=== PATIENT | male | born 1975 | race Caucasian/White ===

== ENCOUNTER 2017-02-27 20:16 | Emergency (ER) | payer OTHER ==
--- NOTE | 2017-02-27 21:07 | ED CLINICAL REPORT ---
Clinical Report - Physicians/Mid Levels [facility] [address] [place] [address] 02/27/2017 20:17 Patient: BARTOLO AVILA Time Seen: 20:33; initial patient contact, initial documentation, patient care assumed. Arrived- By private vehicle. Historian- patient. HISTORY OF PRESENT ILLNESS Chief Complaint: Injury to the left 5th (little) finger. The injury happened just prior to arrival. Fell while running and landed on the ground; tripped. Occurred at home. Patient is experiencing moderate pain. Patient denies injury to the head or neck. No other injury. REVIEW OF SYSTEMS No swelling, tingling, numbness, weakness or foreign body. No skin laceration. All systems otherwise negative, except as recorded above. PAST HISTORY See nurses notes. PROBLEMS: Asthma. --20:40 Eli Reyes R.N. ADDITIONAL SURGERIES: Knee Surgery. --20:40 Eli Reyes R.N. The patient's dominant hand is the right. SOCIAL HISTORY Never smoker. No alcohol use or drug use. No recent travel. Is a local resident. FAMILY HISTORY No significant family medical history. ADDITIONAL NOTES The nursing notes have been reviewed with agreement regarding the chief complaint, HPI, ROS, PMH and patient medications and allergies. PHYSICAL EXAM Vital Signs: 02/27/2017 20:37 BP: 113/53. HR: 70. RR: 18. O2 saturation: 96%. Temp: 98 F. Pain level now: 5/10. Have been reviewed as normal and appear to be correct. Appearance: Alert. Oriented X3. No acute distress. Head: Head atraumatic. Eyes: Pupils equal, round and reactive to light. Eyes normal inspection. Respiratory: No respiratory distress. Abdomen: Moderately obese. Skin: Skin warm and dry. Skin intact. Extremities: Hand injury present. Left little finger: mild tenderness of the middle phalanx; limited movement (diminished flexion). Neurovascular intact distally. No erythema, swelling, laceration, abrasion or ecchymosis. No puncture wound, foreign body or deformity. No subungual hematoma or amputation present. No wrist injury. Hand and wrist exam otherwise negative. Extremities otherwise negative. Neuro, Vascular and Tendons: Vascular status intact. Sensation intact. Motor intact. Tendon function intact. Neuro: Oriented X 3. No motor deficit. No sensory deficit. Note: isolated injury to finger. LABS, X-RAYS, AND EKG X-Rays: Left digit(s). Lt UE Digits X-ray: Digit fracture of the left upper extremity. Fracture of the middle phalanx, little finger. The X-rays were independently viewed by me. PROGRESS AND PROCEDURES Patient counseled in person regarding the patient's stable condition, test results and diagnosis. Differential Diagnosis: Other possible considerations: finger fx, sprain, dislocation. Above considerations are based on history, physical exam and X-Ray data. Differential diagnosis was discussed with patient. Disposition: Discharged home in good and improved condition (21:07). Condition: good and stable. CLINICAL IMPRESSION Closed nondisplaced middle phalanx fracture of the left little finger. No angulated fracture of the phalanx. Fall on same level by tripping. INSTRUCTIONS Apply ice for 20 minutes four times a day for two days until better. Don't apply ice directly to skin. Elevate affected areas above chest level for two days until better. Wear aluminum splint until released. Warnings: GENERAL WARNINGS: Return or contact your physician immediately if your condition worsens or changes unexpectedly, if not improving as expected, or if other problems arise. Specifically return if problem worsens. Prescription Medications: [place] 5 mg / 325 mg tablets: take 1 to 2 orally every 6 hours as needed for pain. Dispense fifteen (15). No refills. Substitution is permissible. Motrin 800 mg tablets: take 1 tablet orally every 8 hours as needed for pain. Dispense thirty (30). No refills. Substitution is permissible. Understanding of the discharge instructions verbalized by patient. Follow-up with: Moose Walden MD, Orthopedic Surgeon, , [address], , [place], [address]; Dalton Ross MD, Orthopedic Surgeon, , [address] , [facility] [address] Follow up in about three days even if well. Call for an appointment. Summary of care provided to patient. (Electronically signed by Rosa Elena Mccabe A.R.N.P. 02/27/2017 22:13)
--- NOTE | 2017-02-27 21:07 | ED NURSING NOTES ---
Clinical Report - Nurses [address] [place] [address] 02/27/2017 20:17 Patient: BARTOLO AVILA TRIAGE Triage time 20:37. Acuity: LEVEL 4. Chief Complaint: INJURY TO LEFT HAND. INJURY TO THE LEFT LITTLE FINGER. 20:42 02/27/17. Alert. No acute distress. SEPSIS SCREEN: Sepsis Screen. Negative (no infection suspected/documented). PHIL COMA SCORE: Phil Coma Scale: 15- eyes open spontaneously (4); best verbal response- oriented x 4 (5); best motor response- obeys commands (6). --20:42 Eli Reyes R.N. 20:37 02/27/17. BP: 113/53. HR: 70. RR: 18. O2 saturation: 96% on room air. Temp: 98 F. Pain level now: 02/21. --20:42 Eli Reyes R.N. Weight: 174.1 kg stated. Height/Length: 75 inches Per Patient. BMI: 48. --20:42 Eli Reyes R.N. Medications Qvar Inhalation. --20:39 Eli Reyes R.N. Albuterol Sulfate Inhalation. --20:40 Eli Reyes R.N. Allergies None. --20:40 Eli Reyes R.N. History Arrived by private vehicle. Historian: patient. Accompanied by family and mother. Primary physician (Dr Green ([place])). This occurred just prior to arrival. Mechanism of injury: fell. ( Patient states "I was chasing my goose and I fell on my finger"). Treatment COPYING MACHINE MECHANIC: Ice. PAST MEDICAL HX: Tetanus status: up-to-date. Immunizations: up-to-date. SOCIAL HX: Never smoker. No alcohol use or drug use. FALL RISK ASSESSMENT: Fall risk assessment completed. No fall risk identified. NUTRITIONAL RISK ASSESSMENT: The nutritional risk assessment revealed no deficiencies. FUNCTIONAL ASSESSMENT: Functional assessment: no impairments noted. LEARNING NEEDS ASSESSMENT: The learning needs assessment revealed no barriers. SKIN INTEGRITY ASSESSMENT: Skin integrity risk assessment completed. No skin integrity risk identified. --20:42 Eli Reyes R.N. PROBLEMS: Asthma. --20:40 Eli Reyes R.N. ADDITIONAL SURGERIES: Knee Surgery. --20:40 Eli Reyes R.N. Interventions ID band on patient. To treatment room. --20:42 Eli Reyes R.N. PHYSICAL ASSESSMENT 20:43 02/27/17. Ambulatory to room. GENERAL / NEURO / PSYCH: Oriented X 4. Alert. Appears in no acute distress. EXTREMITIES: Left little finger: tenderness and swelling. Limited movement secondary to pain (diminished flexion and extension). No erythema. SKIN: Skin intact. Skin is warm and dry. --20:43 Eli Reyes R.N. NURSING PROGRESS NOTES 20:43 02/27/17. Two patient identifiers checked. Call light placed in reach. Side rails up x 1. Bed placed in lowest position. Brakes of bed on. Patient ready for evaluation- chart flagged and notification provided. Patient informed about reason for wait and about plan of care. --20:43 Eli Reyes R.N. ( xray at bedside). --20:46 Eli Reyes R.N. 20:58 02/27/2017 Ibuprofen PO 600 mg given. Allergies verified and confirmed 5 rights. --20:58 Alexis Márquez R.N. Aluminum-foam finger splint applied to left little finger by [employer] ( 2100). --21:08 Quita Potts. DISPOSITION / DISCHARGE 21:16 02/27/17. No learning barriers present. Discharge instructions provided and reviewed with the patient and parent. Reviewed warnings. Reviewed medication(s). Treatments reviewed. Reviewed referrals. Activity restrictions reviewed. Patient and parent verbalized understanding. Written instructions provided in Yakut. The patient was discharged by the nurse practitioner. He was discharged home and accompanied by parent. He left the Emergency Department ambulatory and via private vehicle. Parent driving. --21:16 Eli Reyes R.N. 20:37 02/27/17. BP: 113/53. HR: 70. RR: 18. O2 saturation: 96% on room air. Temp: 98 F. Pain level now: 5/10. --21:16 Eli Reyes R.N. Locked/Released at 02/28/2017 0:26 by Eli Reyes R.N.
--- NOTE | 2017-02-27 21:07 | ED ORDER SUMMARY ---
..... Patient: BARTOLO AVILA OrderSheet [facility] VisitID: [id number] [address] [place] [address] 41y, M Registration Date/Time: 02/27/2017 ORDER SHEET Weight: 174.1 kg (stated) Allergies: None GENERAL ORDERS: Hand 3 or 4V Left Urgent (20:41 02/27/2017 DDavis R.N. verbal order read back to HBivens A.R.N.P.) (20:46 RMarsden R.N.) Splint (Finger) (Left) (Small) (Aluminum Foam) (20:51 02/27/2017 HBivens A.R.N.P.) (21:04 RMarsden R.N.) MEDICATION ORDERS: Hydrocodone-APAP PO 5/325 mg (NOW, HIGH ALERT MEDICATION) (20:51 02/27/2017 HBivens A.R.N.P.) (Ack 20:55 JQuivey R.N.) (Cancelled: Patient [id number]:56 JQuivey R.N.) Ibuprofen PO 600 mg (NOW) (20:57 02/27/2017 JQuivey R.N. per protocol) (20:58 JQuivey R.N.) IV FLUIDS: ORDER SHEET NOTES: [Electronically signed by Rosa Elena MccabeRRadhaN.PRadha (22:13 02/27/2017)] [Electronically signed by Eli Reyes R.N. (00:26 02/28/2017)] [Electronically locked/signed by Eli Reyes R.N. (00:26 02/28/2017)]
--- NOTE | 2017-02-27 21:07 | ED CLINICAL REPORT ---
Clinical Report - Physicians/Mid Levels [facility] [address] [place] [address] 02/27/2017 20:17 Patient: BARTOLO AVILA Time Seen: 20:33; initial patient contact, initial documentation, patient care assumed. Arrived- By private vehicle. Historian- patient. HISTORY OF PRESENT ILLNESS Chief Complaint: Injury to the left 5th (little) finger. The injury happened just prior to arrival. Fell while running and landed on the ground; tripped. Occurred at home. Patient is experiencing moderate pain. Patient denies injury to the head or neck. No other injury. REVIEW OF SYSTEMS No swelling, tingling, numbness, weakness or foreign body. No skin laceration. All systems otherwise negative, except as recorded above. PAST HISTORY See nurses notes. PROBLEMS: Asthma. --20:40 Eli Reyes R.N. ADDITIONAL SURGERIES: Knee Surgery. --20:40 Eli Reyes R.N. The patient's dominant hand is the right. SOCIAL HISTORY Never smoker. No alcohol use or drug use. No recent travel. Is a local resident. FAMILY HISTORY No significant family medical history. ADDITIONAL NOTES The nursing notes have been reviewed with agreement regarding the chief complaint, HPI, ROS, PMH and patient medications and allergies. PHYSICAL EXAM Vital Signs: 02/27/2017 20:37 BP: 113/53. HR: 70. RR: 18. O2 saturation: 96%. Temp: 98 F. Pain level now: 5/10. Have been reviewed as normal and appear to be correct. Appearance: Alert. Oriented X3. No acute distress. Head: Head atraumatic. Eyes: Pupils equal, round and reactive to light. Eyes normal inspection. Respiratory: No respiratory distress. Abdomen: Moderately obese. Skin: Skin warm and dry. Skin intact. Extremities: Hand injury present. Left little finger: mild tenderness of the middle phalanx; limited movement (diminished flexion). Neurovascular intact distally. No erythema, swelling, laceration, abrasion or ecchymosis. No puncture wound, foreign body or deformity. No subungual hematoma or amputation present. No wrist injury. Hand and wrist exam otherwise negative. Extremities otherwise negative. Neuro, Vascular and Tendons: Vascular status intact. Sensation intact. Motor intact. Tendon function intact. Neuro: Oriented X 3. No motor deficit. No sensory deficit. Note: isolated injury to finger. LABS, X-RAYS, AND EKG X-Rays: Left digit(s). Lt UE Digits X-ray: Digit fracture of the left upper extremity. Fracture of the middle phalanx, little finger. The X-rays were independently viewed by me. PROGRESS AND PROCEDURES Patient counseled in person regarding the patient's stable condition, test results and diagnosis. Differential Diagnosis: Other possible considerations: finger fx, sprain, dislocation. Above considerations are based on history, physical exam and X-Ray data. Differential diagnosis was discussed with patient. Disposition: Discharged home in good and improved condition (21:07). Condition: good and stable. CLINICAL IMPRESSION Closed nondisplaced middle phalanx fracture of the left little finger. No angulated fracture of the phalanx. Fall on same level by tripping. INSTRUCTIONS Apply ice for 20 minutes four times a day for two days until better. Don't apply ice directly to skin. Elevate affected areas above chest level for two days until better. Wear aluminum splint until released. Warnings: GENERAL WARNINGS: Return or contact your physician immediately if your condition worsens or changes unexpectedly, if not improving as expected, or if other problems arise. Specifically return if problem worsens. Prescription Medications: [place] 5 mg / 325 mg tablets: take 1 to 2 orally every 6 hours as needed for pain. Dispense fifteen (15). No refills. Substitution is permissible. Motrin 800 mg tablets: take 1 tablet orally every 8 hours as needed for pain. Dispense thirty (30). No refills. Substitution is permissible. Understanding of the discharge instructions verbalized by patient. Follow-up with: Moose Walden MD, Orthopedic Surgeon, , [address], , [place], [address]; Dalton Ross MD, Orthopedic Surgeon, , [address] , [facility] [id number] Follow up in about three days even if well. Call for an appointment. Summary of care provided to patient. (Electronically signed by Rosa Elena Mccabe A.R.N.P. 02/27/2017 22:13)
--- NOTE | 2017-02-27 21:07 | ED ORDER SUMMARY ---
..... Patient: BARTOLO AVILA OrderSheet [facility] VisitID: [id number] [address] [place] [address] 41y, M Registration Date/Time: 02/27/2017 ORDER SHEET Weight: 174.1 kg (stated) Allergies: None GENERAL ORDERS: Hand 3 or 4V Left Urgent (20:41 02/27/2017 DDavis R.N. verbal order read back to HBivens A.R.N.P.) (20:46 RMarsden R.N.) Splint (Finger) (Left) (Small) (Aluminum Foam) (20:51 02/27/2017 HBivens A.R.N.P.) (21:04 RMarsden R.N.) MEDICATION ORDERS: Hydrocodone-APAP PO 5/325 mg (NOW, HIGH ALERT MEDICATION) (20:51 02/27/2017 HBivens A.R.N.P.) (Ack 20:55 JQuivey R.N.) (Cancelled: Patient [id number]:56 JQuivey R.N.) Ibuprofen PO 600 mg (NOW) (20:57 02/27/2017 JQuivey R.N. per protocol) (20:58 JQuivey R.N.) IV FLUIDS: ORDER SHEET NOTES: [Electronically signed by Rosa Elena MccabeRRadhaN.PRadha (22:13 02/27/2017)] [Electronically signed by Eli Reyes R.N. (00:26 02/28/2017)] [Electronically locked/signed by Eli Reyes R.N. (00:26 02/28/2017)]
--- NOTE | 2017-02-27 21:07 | ED NURSING NOTES ---
Clinical Report - Nurses [address] [place] [address] 02/27/2017 20:17 Patient: BARTOLO AVILA TRIAGE Triage time 20:37. Acuity: LEVEL 4. Chief Complaint: INJURY TO LEFT HAND. INJURY TO THE LEFT LITTLE FINGER. 20:42 02/27/17. Alert. No acute distress. SEPSIS SCREEN: Sepsis Screen. Negative (no infection suspected/documented). PHIL COMA SCORE: Phil Coma Scale: 15- eyes open spontaneously (4); best verbal response- oriented x 4 (5); best motor response- obeys commands (6). --20:42 Eli Reyes R.N. 20:37 02/27/17. BP: 113/53. HR: 70. RR: 18. O2 saturation: 96% on room air. Temp: 98 F. Pain level now: 02/21. --20:42 Eli Reyes R.N. Weight: 174.1 kg stated. Height/Length: 75 inches Per Patient. BMI: 48. --20:42 Eli Reyes R.N. Medications Qvar Inhalation. --20:39 Eli Reyes R.N. Albuterol Sulfate Inhalation. --20:40 Eli Reyes R.N. Allergies None. --20:40 Eli Reyes R.N. History Arrived by private vehicle. Historian: patient. Accompanied by family and mother. Primary physician (Dr Green ([place])). This occurred just prior to arrival. Mechanism of injury: fell. ( Patient states "I was chasing my goose and I fell on my finger"). Treatment ASSISTANT: Ice. PAST MEDICAL HX: Tetanus status: up-to-date. Immunizations: up-to-date. SOCIAL HX: Never smoker. No alcohol use or drug use. FALL RISK ASSESSMENT: Fall risk assessment completed. No fall risk identified. NUTRITIONAL RISK ASSESSMENT: The nutritional risk assessment revealed no deficiencies. FUNCTIONAL ASSESSMENT: Functional assessment: no impairments noted. LEARNING NEEDS ASSESSMENT: The learning needs assessment revealed no barriers. SKIN INTEGRITY ASSESSMENT: Skin integrity risk assessment completed. No skin integrity risk identified. --20:42 Eli Reyes R.N. PROBLEMS: Asthma. --20:40 Eli Reyes R.N. ADDITIONAL SURGERIES: Knee Surgery. --20:40 Eli Reyes R.N. Interventions ID band on patient. To treatment room. --20:42 Eli Reyes R.N. PHYSICAL ASSESSMENT 20:43 02/27/17. Ambulatory to room. GENERAL / NEURO / PSYCH: Oriented X 4. Alert. Appears in no acute distress. EXTREMITIES: Left little finger: tenderness and swelling. Limited movement secondary to pain (diminished flexion and extension). No erythema. SKIN: Skin intact. Skin is warm and dry. --20:43 Eli Reyes R.N. NURSING PROGRESS NOTES 20:43 02/27/17. Two patient identifiers checked. Call light placed in reach. Side rails up x 1. Bed placed in lowest position. Brakes of bed on. Patient ready for evaluation- chart flagged and notification provided. Patient informed about reason for wait and about plan of care. --20:43 Eli Reyes R.N. ( xray at bedside). --20:46 Eli Reyes R.N. 20:58 02/27/2017 Ibuprofen PO 600 mg given. Allergies verified and confirmed 5 rights. --20:58 Alexis Márquez R.N. Aluminum-foam finger splint applied to left little finger by [employer] ( 2100). --21:08 Quita Potts. DISPOSITION / DISCHARGE 21:16 02/27/17. No learning barriers present. Discharge instructions provided and reviewed with the patient and parent. Reviewed warnings. Reviewed medication(s). Treatments reviewed. Reviewed referrals. Activity restrictions reviewed. Patient and parent verbalized understanding. Written instructions provided in Georgian. The patient was discharged by the nurse practitioner. He was discharged home and accompanied by parent. He left the Emergency Department ambulatory and via private vehicle. Parent driving. --21:16 Eli Reyes R.N. 20:37 02/27/17. BP: 113/53. HR: 70. RR: 18. O2 saturation: 96% on room air. Temp: 98 F. Pain level now: 5/10. --21:16 Eli Reyes R.N. Locked/Released at 02/28/2017 0:26 by Eli Reyes R.N.
--- NOTE | 2017-02-27 21:39 | DIAGNOSTIC IMAGING REPORT ---
PROCEDURE: XR HAND 3 OR 4 VIEWS - LEFT INDICATION: TRAUMA/INJURY TECHNIQUE: Four views. COMPARISON: None. FINDINGS: There is a comminuted vertical intra-articular fracture of the middle phalanx, left fifth finger, involving the proximal interphalangeal joint. This is associated with moderate splaying of fracture fragments of the articular surface. The rest of the osseous structures and joint spaces are normal. IMPRESSION: 1. Comminuted intra-articular fracture of the middle phalanx, left fifth finger. 2. Otherwise negative left hand.
--- NOTE | 2017-02-28 00:27 | ED DISCHARGE INSTRUCTIONS ---
Patient: BARTOLO AVILA General Instructions [facility] VisitID: [id number] [address], [place], [place] [id number] 41y, M Registration Date/Time: 02/27/2017 Closed nondisplaced middle phalanx fracture of the left little finger. No angulated fracture of the phalanx. Fall on same level by tripping. INSTRUCTIONS Apply ice for 20 minutes four times a day for two days until better. Don't apply ice directly to skin. Elevate affected areas above chest level for two days until better. Wear aluminum splint until released. Warnings: GENERAL WARNINGS: Return or contact your physician immediately if your condition worsens or changes unexpectedly, if not improving as expected, or if other problems arise. Specifically return if problem worsens. Prescription Medications: [place] 5 mg / 325 mg tablets: take 1 to 2 orally every 6 hours as needed for pain. Dispense fifteen (15). No refills. Substitution is permissible. Motrin 800 mg tablets: take 1 tablet orally every 8 hours as needed for pain. Dispense thirty (30). No refills. Substitution is permissible. Understanding of the discharge instructions verbalized by patient. Follow-up with: Moose Walden MD, Orthopedic Surgeon, , [facility], , [place], [address]; Dalton Ross MD, Orthopedic Surgeon, , [address] [place] [address] Follow up in about three days even if well. Call for an appointment. Summary of care provided to patient. ADDITIONAL INFORMATION Mechanical Fall You have had a fall today. It appears that the cause is mechanical. That means that you slipped, tripped or lost your balance. If your fall had been due to fainting or a seizure, further tests would be required. Home Care: Rest today and resume your normal activities when you are feeling back to normal. If you were injured during the fall, follow the advice from your doctor regarding care of your injury. You may use acetaminophen (Tylenol) or ibuprofen (Motrin, Advil) to control pain, unless another pain medicine was prescribed. [NOTE: If you have chronic liver or kidney disease or ever had a stomach ulcer or GI bleeding, talk with your doctor before using these medicines.] Fall Prevention: Was there anything that caused your fall that can be fixed, removed, or replaced? Make your home safe by keeping walkways clear of objects you may trip over. Use non-slip pads under rugs. Do not walk in poorly lit areas. Do not stand on chairs or wobbly ladders. Use caution when reaching overhead or looking upward. This position can cause a loss of balance. Be sure your shoes fit properly, have non-slip bottoms and are in good condition. Be cautious when going up and down curbs, and walking on uneven sidewalks. If your balance is poor, consider using a cane or walker. Stay as active as you can. Balance, flexibility, strength, and endurance all come from exercise. They all play a role in preventing falls. Follow Up with your doctor or as advised by our staff. Get Prompt Medical Attention if any of the following occur: Repeated mechanical falls, or unexplained falls Dizziness, fainting or seizure Severe headache Chest pain or shortness of breath Palpitations (very rapid or very slow or irregular heartbeat) Blood in vomit, stools (black or red color) Weakness of an arm or leg or one side of the face Difficulty with speech or vision Fracture: Finger [Closed] You have a fracture of your finger (broken finger). This causes local pain, swelling and bruising. This injury takes about four weeks to heal. Finger injuries are often treated with a splint, cast or by taping the injured finger to the next one ("shivam taping"). This protects the injured finger and holds the bone in position while it heals. More serious fractures may require surgery. If the FINGERNAIL has been severely injured, it will probably fall off in 1-2 weeks. A new fingernail will usually start to grow back within a month. Home Care: 1) Keep your hand elevated to reduce pain and swelling. When sitting or lying down elevate your arm above the level of your heart. You can do this by placing your arm on a pillow that rests on your chest or on a pillow at your side. This is most important during the first 48 hours after injury. 2) Apply an ice pack (ice cubes in a plastic bag, wrapped in a towel) over the injured area for 20 minutes every 1-2 hours the first day for pain relief. Continue this 3-4 times a day until the pain and swelling goes away. 3) Keep the cast/splint completely dry at all times. Bathe with your cast/splint out of the water, protected with a large plastic bag, rubber-banded at the top end. If a fiberglass cast/splint gets wet, you can dry it with a hair-dryer. 4) If shivam tape was applied and it becomes wet or dirty, change it. You may replace it with paper, plastic or cloth tape. Cloth tape and paper tapes must be kept dry. Keep the shivam tape in place for at least four weeks. 5) You may use acetaminophen (Tylenol) or ibuprofen (Motrin, Advil) to control pain, unless another pain medicine was prescribed. [ NOTE : If you have chronic liver or kidney disease or ever had a stomach ulcer or GI bleeding, talk with your doctor before using these medicines.] Follow Up with your doctor within one week, or as advised by our staff, to be sure the bone is healing properly, . [NOTE: A radiologist will review any X-rays that were taken. We will notify you of any new findings that may affect your care.] Get Prompt Medical Attention if any of the following occur: -- The plaster cast or splint becomes wet or soft -- The fiberglass cast or splint remains wet for more than 24 hours -- Pain or swelling increases -- Redness, warmth, swelling, drainage from the wound or foul odor from a cast or splint -- Finger becomes more cold, blue, numb or tingly Hydrocodone Bitartrate, Acetaminophen Oral tablet What is this medicine? ACETAMINOPHEN; HYDROCODONE (a set a JANEL varun fen; latrice droe KOE done) is a pain reliever. It is used to treat mild to moderate pain. How should I use this medicine? Take this medicine by mouth. Swallow it with a full glass of water. Follow the directions on the prescription label. If the medicine upsets your stomach, take the medicine with food or milk. Do not take more than you are told to take. Talk to your vice president of manufacturing regarding the use of this medicine in children. This medicine is not approved for use in children. What side effects may I notice from receiving this medicine? Side effects that you should report to your doctor or health care transition manager as soon as possible: allergic reactions like skin rash, itching or hives, swelling of the face, lips, or tongue breathing problems confusion feeling faint or lightheaded, falls stomach pain yellowing of the eyes or skin Side effects that usually do not require medical attention (report to your doctor or health care transition manager if they continue or are bothersome): nausea, vomiting stomach upset What may interact with this medicine? alcohol antihistamines isoniazid medicines for depression, anxiety, or psychotic disturbances medicines for sleep muscle relaxants naltrexone narcotic medicines (opiates) for pain phenobarbital ritonavir tramadol What if I miss a dose? If you miss a dose, take it as soon as you can. If it is almost time for your next dose, take only that dose. Do not take double or extra doses. Where should I keep my medicine? Keep out of the reach of children. This medicine can be abused. Keep your medicine in a safe place to protect it from theft. Do not share this medicine with anyone. Selling or giving away this medicine is dangerous and against the law. Store at room temperature between 15 and 30 degrees C (59 and 86 degrees F). Protect from light. Keep container tightly closed. Throw away any unused medicine after the expiration date. Discard unused medicine and used packaging carefully. Pets and children can be harmed if they find used or lost packages. What should I tell my health care provider before I take this medicine? They need to know if you have any of these conditions: brain tumor Crohn's disease, inflammatory bowel disease, or ulcerative colitis drink more than 3 alcohol-containing drinks per day drug abuse or addiction head injury heart or circulation problems kidney disease or problems going to the bathroom liver disease lung disease, asthma, or breathing problems an unusual or allergic reaction to acetaminophen, hydrocodone, other opioid analgesics, other medicines, foods, dyes, or preservatives or trying to get breast-feeding What should I watch for while using this medicine? Tell your doctor or health care transition manager if your pain does not go away, if it gets worse, or if you have new or a different type of pain. You may develop tolerance to the medicine. Tolerance means that you will need a higher dose of the medicine for pain relief. Tolerance is normal and is expected if you take the medicine for a long time. Do not suddenly stop taking your medicine because you may develop a severe reaction. Your body becomes used to the medicine. This does NOT mean you are addicted. Addiction is a behavior related to getting and using a drug for a non-medical reason. If you have pain, you have a medical reason to take pain medicine. Your doctor will tell you how much medicine to take. If your doctor wants you to stop the medicine, the dose will be slowly lowered over time to avoid any side effects. You may get drowsy or dizzy when you first start taking the medicine or change doses. Do not drive, use machinery, or do anything that may be dangerous until you know how the medicine affects you. Stand or sit up slowly. There are different types of narcotic medicines (opiates) for pain. If you take more than one type at the same time, you may have more side effects. Give your health care provider a list of all medicines you use. Your doctor will tell you how much medicine to take. Do not take more medicine than directed. Call emergency for help if you have problems breathing. The medicine will cause constipation. Try to have a bowel movement at least every 2 to 3 days. If you do not have a bowel movement for 3 days, call your doctor or health care transition manager. Too much acetaminophen can be very dangerous. Do not take Tylenol (acetaminophen) or medicines that contain acetaminophen with this medicine. Many non-prescription medicines contain acetaminophen. Always read the labels carefully. Ibuprofen Oral tablet What is this medicine? IBUPROFEN (eye BYOO proe fen) is a non-steroidal anti-inflammatory drug (NSAID). It is used for dental pain, fever, headaches or migraines, osteoarthritis, rheumatoid arthritis, or painful monthly periods. It can also relieve minor aches and pains caused by a cold, flu, or sore throat. How should I use this medicine? Take this medicine by mouth with a glass of water. Follow the directions on the prescription label. Take this medicine with food if your stomach gets upset. Try to not lie down for at least 10 minutes after you take the medicine. Take your medicine at regular intervals. Do not take your medicine more often than directed. A special MedGuide will be given to you by the pharmacist with each prescription and refill. Be sure to read this information carefully each time. Talk to your vice president of manufacturing regarding the use of this medicine in children. Special care may be needed. What side effects may I notice from receiving this medicine? Side effects that you should report to your doctor or health care transition manager as soon as possible: allergic reactions like skin rash, itching or hives, swelling of the face, lips, or tongue black or bloody stools, blood in the urine or in vomit breathing problems changes in vision chest pain general ill feeling or flu-like symptoms nausea or vomiting redness, blistering, peeling or loosening of the skin, including inside the mouth slurred speech or weakness on one side of the body stomach pain unexplained weight gain or swelling unusually weak or tired yellowing of eyes or skin Side effects that usually do not require medical attention (report to your doctor or health care transition manager if they continue or are bothersome): constipation or diarrhea dizziness gas or heartburn stomach upset What may interact with this medicine? Do not take this medicine with any of the following medications: cidofovir ketorolac methotrexate pemetrexed This medicine may also interact with the following medications: alcohol aspirin diuretics lithium other drugs for inflammation like prednisone warfarin What if I miss a dose? If you miss a dose, take it as soon as you can. If it is almost time for your next dose, take only that dose. Do not take double or extra doses. Where should I keep my medicine? Keep out of the reach of children. Store at room temperature between 15 and 30 degrees C (59 and 86 degrees F). Keep container tightly closed. Throw away any unused medicine after the expiration date. What should I tell my health care provider before I take this medicine? They need to know if you have any of these conditions: asthma cigarette smoker drink more than 3 alcohol containing drinks a day heart disease or circulation problems such as heart failure or leg edema (fluid retention) high blood pressure kidney disease liver disease stomach bleeding or ulcers an unusual or allergic reaction to ibuprofen, aspirin, other NSAIDS, other medicines, foods, dyes, or preservatives or trying to get breast-feeding What should I watch for while using this medicine? Tell your doctor or healthcare professional if your symptoms do not start to get better or if they get worse. This medicine does not prevent heart attack or stroke. In fact, this medicine may increase the chance of a heart attack or stroke. The chance may increase with longer use of this medicine and in people who have heart disease. If you take aspirin to prevent heart attack or stroke, talk with your doctor or health care transition manager. Do not take other medicines that contain aspirin, ibuprofen, or naproxen with this medicine. Side effects such as stomach upset, nausea, or ulcers may be more likely to occur. Many medicines available without a prescription should not be taken with this medicine. This medicine can cause ulcers and bleeding in the stomach and intestines at any time during treatment. Ulcers and bleeding can happen without warning symptoms and can cause . To reduce your risk, do not smoke cigarettes or drink alcohol while you are taking this medicine. You may get drowsy or dizzy. Do not drive, use machinery, or do anything that needs mental alertness until you know how this medicine affects you. Do not stand or sit up quickly, especially if you are an older patient. This reduces the risk of dizzy or fainting spells. This medicine can cause you to bleed more easily. Try to avoid damage to your teeth and gums when you brush or floss your teeth. You have been given the following additional information: Fall, Mechanical Fracture, Finger (Closed) Hydrocodone Bitartrate, Acetaminophen Oral tablet Ibuprofen Oral tablet (Electronically signed by Rosa Elena Mccabe A.R.N.P. 02/27/2017 22:13)
--- NOTE | 2017-02-28 00:27 | ED MED RECONCILIATION SUMMARY ---
Patient: BARTOLO AVILA Medication Reconciliation Report [facility] VisitID: [id number] [address] [place] [address] 41y, M Registration Date/Time: 02/27/2017 Weight: 174.1 kg Height/Length: 75 in. BMI: 48.0 ALLERGIES: None The patient's Home Medications are listed below: THE FOLLOWING MEDICATIONS NEED TO BE RECONCILED: Albuterol Sulfate Inhalation Qvar Inhalation The source(s) of the original Home Medication information: Not obtained. The following Medications were given to the patient in the Emergency Department: Ibuprofen [PO] PO 600 mg, administered: 02/27/2017 8:58:00 PM The following Medications were prescribed to the patient: [place] 5 mg / 325 mg tablets: take 1 to 2 orally every 6 hours as needed for pain. Dispense fifteen (15). No refills. Substitution is permissible. -- Rosa Elena Mccabe A.R.N.P. Motrin 800 mg tablets: take 1 tablet orally every 8 hours as needed for pain. Dispense thirty (30). No refills. Substitution is permissible. -- Rosa Elena Mccabe A.R.N.P.
--- NOTE | 2017-02-28 00:27 | ED MED RECONCILIATION SUMMARY ---
Patient: BARTOLO AVILA Medication Reconciliation Report [facility] VisitID: [id number] [address] [place] [address] 41y, M Registration Date/Time: 02/27/2017 Weight: 174.1 kg Height/Length: 75 in. BMI: 48.0 ALLERGIES: None The patient's Home Medications are listed below: THE FOLLOWING MEDICATIONS NEED TO BE RECONCILED: Albuterol Sulfate Inhalation Qvar Inhalation The source(s) of the original Home Medication information: Not obtained. The following Medications were given to the patient in the Emergency Department: Ibuprofen [PO] PO 600 mg, administered: 02/27/2017 8:58:00 PM The following Medications were prescribed to the patient: [place] 5 mg / 325 mg tablets: take 1 to 2 orally every 6 hours as needed for pain. Dispense fifteen (15). No refills. Substitution is permissible. -- Rosa Elena Mccabe A.R.N.P. Motrin 800 mg tablets: take 1 tablet orally every 8 hours as needed for pain. Dispense thirty (30). No refills. Substitution is permissible. -- Rosa Elena Mccabe A.R.N.P.
--- NOTE | 2017-02-28 00:27 | ED MAR SUMMARY ---
..... Medication Administration Record [facility] [address] [place] [address] Patient: BARTOLO AVILA Visit ID: [id number] 41y, M Weight: 174.1 kg Height/Length: 75 in BMI: 48 ALLERGIES: None Given 20:58 02/27/2017 Alexis Márquez R.N. Medication Administered: IBUPROFEN [PO], Dose: 600 mg PO. Medication Ordered: Ibuprofen PO 600 mg (NOW).
--- NOTE | 2017-02-28 00:27 | ED MAR SUMMARY ---
..... Medication Administration Record [facility] [address] [place] [address] Patient: BARTOLO AVILA Visit ID: [id number] 41y, M Weight: 174.1 kg Height/Length: 75 in BMI: 48 ALLERGIES: None Given 20:58 02/27/2017 Alexis Márquez R.N. Medication Administered: IBUPROFEN [PO], Dose: 600 mg PO. Medication Ordered: Ibuprofen PO 600 mg (NOW).
== END 2017-02-27 21:16 | disposition home or self-care (01) ==
LOC: ED SRH 20:16
DX: S62.657A Nondisplaced fracture of middle phalanx of left little finger, initial encounter for closed fracture (principal); W01.0XXA Fall on same level from slipping, tripping and stumbling without subsequent striking against object, initial encounter; Y93.02 Activity, running; Y99.9 Unspecified external cause status; Y92.009 Unspecified place in unspecified non-institutional (private) residence as the place of occurrence of the external cause